=== PATIENT | female | born 1985 | race Caucasian/White ===

== ENCOUNTER 2021-12-18 12:32 | Emergency (ER) | payer BC ==
[2021-12-18] MEDS ORDERED: Sodium Chloride 0.9% 10 ML Syringe FLUSH PRN (13:13)
[2021-12-18] MEDS ORDERED: Sodium Chloride 0.9% 1,000 ML IV ONE (13:13)
[2021-12-18] MEDS ORDERED: Pantoprazole 40 MG Vial IVPUSH ONE (13:14)
[2021-12-18] MEDS ORDERED: Dicyclomine 20 MG/2 ML SDV IM ONE (13:15)
[2021-12-18] MEDS ORDERED: GI Cocktail Oral Solution 30 ML PO ONE (13:17)
[2021-12-18] MEDS ORDERED: Pantoprazole 40 MG Vial ONE (13:41)
[2021-12-18] MEDS ORDERED: Ondansetron 4 MG/2 ML SDV ONE (13:50)
[2021-12-18] MEDS ORDERED: Ondansetron 4 MG/2 ML SDV IVPUSH ONE (13:51)
[2021-12-18] MEDS ORDERED: Ketorolac 30 MG/ML SDV IVPUSH ONE (14:10)
[2021-12-18] MEDS ORDERED: Sucralfate 1 GM Tab PO ONE (15:55)
[2021-12-18] MEDS ORDERED: Sucralfate 1 GM Tab ONE (15:58)
== END 2021-12-18 16:12 | disposition home or self-care (01) ==
LOC: LB.ED 12:32
DX: K21.00 Gastro-esophageal reflux disease with esophagitis, without bleeding (principal); Z87.891 Personal history of nicotine dependence; Z79.899 Other long term (current) drug therapy; Z88.8 Allergy status to other drugs, medicaments and biological substances
CPT/HCPCS: 36415; 71270; 80048; 84484; 85025; 96372; 96374; 96375; 99284; A9270; C9113; J0500; J1885; J2405; J7030; 99283

== ENCOUNTER 2022-01-18 12:58 | Emergency (ER) | payer BC ==
[2022-01-18] MEDS ORDERED: Benzonatate 100 MG Cap ONE (16:00)
== END 2022-01-18 16:25 | disposition home or self-care (01) ==
LOC: LB.ED 12:58
DX: J01.90 Acute sinusitis, unspecified (principal); Z91.030 Bee allergy status; Z88.1 Allergy status to other antibiotic agents; Z88.8 Allergy status to other drugs, medicaments and biological substances; Z20.822 Contact with and (suspected) exposure to COVID-19
CPT/HCPCS: 36415; 71045; 80053; 85025; 87635; 99283; A9270; U0002